=== PATIENT | female | born 1995 | race Caucasian/White ===

== ENCOUNTER 2019-11-25 05:09 | Outpatient (CLI) | payer MEDICAID ==
[2019-11-25] MEDS ORDERED: HYDROXYZINE PAMOATE 50 MG CAPSULE PO ONE (06:01)
[2019-11-25 06:04] LABS: APPEARANCE,URINE CLEAR; BILIRUBIN,URINE NEGATIVE (NEGATIVE); COLOR,URINE YELLOW; GLUCOSE, URINE NEGATIVE (NEGATIVE); KETONES,URINE NEGATIVE (NEGATIVE); LEUKOCYTE ESTERASE,URINE NEGATIVE (NEGATIVE); NITRITE,URINE NEGATIVE (NEGATIVE); PROTEIN,URINE NEGATIVE (NEGATIVE); URINE SPECIFIC GRAVITY 1.009; UROBILINOGEN,URINE NEGATIVE mg/dL (<2.0)
[2019-11-25] MEDS ORDERED: HYDROXYZINE PAMOATE 50 MG CAPSULE ONE (06:09)
[2019-11-25 06:25] LABS: URINE AMPHETAMINES SCREEN NEGATIVE; URINE BARBITURATES SCREEN NEGATIVE; URINE BENZODIAZEPINES SCREEN NEGATIVE; URINE COCAINE SCREEN NEGATIVE; URINE MARIJUANA (THC) SCREEN NEGATIVE; URINE METHADONE SCREEN NEGATIVE; URINE PHENCYCLIDINE SCREEN NEGATIVE
--- NOTE | 2019-11-25 08:18 | Non Stress Test Report ---
Non Stress Test Datetime Report Generated by CPN: 11/25/2019 08:18 DEMOGRAPHIC Test Number: 1 EGA NST: 38.1 INDICATION Indication for Study (NST) Other: lc VITAL SIGNS Temperature - NST: 96.8 Pulse - NST: 68 RESP - NST: 16 NBPSYS NST: 102 NBPDIA NST: 74 URINE RESULTS Urine Protein, NST: Negative Urine Ketones - NST: Negative Urine Glucose - NST: Negative Urine Blood - NST: Negative MONITORING Monitor Explained: Monitor Explained; Test Explained; Patient Verbalized Understanding Time on Monitor: 11/25/2019 05:30 Time off Monitor: 11/25/2019 06:09 NST Duration: 39 NST INTERVENTIONS NST Interventions: PO Hydration Physician Notified NST: Dr. Magno BABY A: [id number] BABY A Movement : Present Contraction Frequency : Irregular FHR Baseline : 125 Accelerations : 15X15 Decelerations : None Variability : Moderate 6-25bpm NST Review: Meets Criteria for Reactive NST NST Review and Verified By : TMartin,RN NST Results: Reactive NST REPORT Report Trigger: Send Report
== END 2019-11-25 07:42 | disposition home or self-care (01) ==
LOC: LC 05:09
PROVIDERS: ATTEND Obstetrics & Gynecology
DX: O26.892 Other specified pregnancy related conditions, second trimester (principal); M54.9 Dorsalgia, unspecified; Z3A.38 38 weeks gestation of pregnancy
CPT/HCPCS: 59025; 94760; 81001; 80307; 84112; J3490

== ENCOUNTER 2019-12-03 16:50 | Inpatient (IN) | payer MEDICAID ==
[2019-12-03] MEDS ORDERED: RINGERS SOLUTION,LACTATED 1,000 ML IV ONE (17:22)
[2019-12-03 17:33] LABS: APPEARANCE,URINE CLEAR; BILIRUBIN,URINE NEGATIVE (NEGATIVE); COLOR,URINE YELLOW; GLUCOSE, URINE NEGATIVE (NEGATIVE); KETONES,URINE NEGATIVE (NEGATIVE); LEUKOCYTE ESTERASE,URINE NEGATIVE (NEGATIVE); NITRITE,URINE NEGATIVE (NEGATIVE); PROTEIN,URINE NEGATIVE (NEGATIVE); URINE SPECIFIC GRAVITY 1.014
[2019-12-03] MEDS ORDERED: NA PHOS,M-B/NA PHOS,DI-BA (ADULT) 133 ML ENEMA PR PRN (17:57)
[2019-12-03] MEDS ORDERED: RINGERS SOLUTION,LACTATED 1,000 ML IV PRN ×2 (17:57→18:00)
[2019-12-03] MEDS ORDERED: DINOPROSTONE 10 MG VAGINAL INSERT.SR PV ONE (18:00)
[2019-12-03] MEDS ORDERED: MAG HYDROX/AL HYDROX/SIMETH SUSP 30 ML UDCUP PO PRN (18:00)
[2019-12-03] MEDS ORDERED: ZOLPIDEM TARTRATE 5 MG TABLET PO PRN (18:00)
[2019-12-03] MEDS ORDERED: ACETAMINOPHEN 325 MG TABLET PO PRN (18:00)
[2019-12-03] MEDS ORDERED: RINGERS SOLUTION,LACTATED 300 ML IV ONE (18:00)
--- NOTE | 2019-12-03 18:08 | Admission Physical ---
Datetime Report Generated by CPN: 12/03/2019 18:08 CURRENT ADMISSION Chief Complaint: Sent from OB Office for Evaluation and Treatment - Please Specify Indication for Induction: Oligohydramnios Admit Impression : Term, Intrauterine ; Induction of Labor Admit Plan: Admit to Unit; Initiate Labor Induction Protocol ALLERGIES Medication Allergies: No Medication Allergies: No Known Allergies (11/25/2019) Latex: No Latex Allergies Food Allergies: denies Environmental Allergies: denies OBSTETRICAL HISTORY EDC: 12/08/2019 00:00 : 1 Para: 0 Term: 0 : 0 SAB: 0 IAB: 0 Livin Cesareans: 0 VBACs: 0 Gestational Diabetes: Yes Rh Sensitization: No Incompetent Cervix: No RICHARD: No Infertility: No ART Treatment: No Uterine Anomaly: No IUGR: No Hx Previous C/S: No Macrosomia: No Hx Loss/Stillborn: No PIH: No Hx : No Placenta Previa/Abruption: No Depression/PP Depression: Yes PTL/PROM: No Post Hemorrhage: No Current Procedures: Ultrasound; NST Obstetrical History Comments: g1-current , GDM SEE RECORDS Alcohol: No Marijuana : No Cocaine: No Other Illicit Drugs: No Cigarettes: Current Everyday Smoker. [id number] Cigarette Frequency: > 10 per day Advised to Stop: Yes MEDICAL HISTORY Diabetes: Yes Diabetes Type: Gestational Diabetes Blood Transfusion: No Pulmonary Disease (Asthma, TB): No Breast Disease: No Hypertension: No Liquefaction And Regasification Helper Surgery: No Heart Disease: No Hosp/Surgery: No Autoimmune Disorder: Yes Anesthetic Complications: No Kidney Disease: Yes Abnormal Pap Smear: No Neuro/Epilepsy: No Psychiatric Disorders: Unknown Other Medical Diseases: No Hepatitis/Liver Disease: No Significant Family History: No Varicosities/Phlebitis: No Trauma/Violence : No Thyroid Dysfunction: No Medical History Comments: smoker, hand xray on right hand, uti, psoriasis, depression, records state borderline personality disorder, tonsilectomy, wisdom teeth removal, thc per chart, hx of cutting INFECTIOUS HISTORY Gonorrhea: No Genital Herpes: No Chlamydia: No Tuberculosis: No Syphilis: No Hepatitis: No HIV/AIDS Exposure: No Rash or Viral Illness: No HPV: No PHYSICAL EXAM General: Normal HEENT: Normal Neurologic: Normal Thyroid: Normal Heart: Normal Lungs: Normal Breast: Normal Back: Normal Abdomen: Normal Genitourinary Exam: Normal Extremities: Normal DTRs: Normal Pelvic Type: Adequate Vital Signs: Reviewed; Within Normal Limits VAGINAL EXAM Dilatation: 2 Effacement: 80 Station: -1 MEMBRANES Pooling: Negative Membranes: Intact FETUS A EGA: 39.2 Monitoring: External US FHR- Baseline: 130 Variability: Moderate 6-25bpm Accelerations: 10X10 Decelerations: None FHR Category: Category II Estimated Weight (gm): 3400 Presentation: Vertex Admit Comment: sent from office for rehydration due to CITLALI of 4.7. Will go ahead and proceed with induction based on EGA and oligohydramnios. EFW at office 7# 12 oz PLANS FOR LABOR AND DELIVERY Labor and Delivery: Other, Specify Pain Management: Epidural Feeding Preference: Breast Benefit of Breast Feed Discussed: Yes Circumcision: Yes INFORMED CONSENT Signature: with User ID: [email or web address]
[2019-12-03 18:09] LABS: URINE AMPHETAMINES SCREEN NEGATIVE; URINE BARBITURATES SCREEN NEGATIVE; URINE BENZODIAZEPINES SCREEN NEGATIVE; URINE COCAINE SCREEN NEGATIVE; URINE MARIJUANA (THC) SCREEN NEGATIVE; URINE METHADONE SCREEN NEGATIVE; URINE PHENCYCLIDINE SCREEN NEGATIVE
[2019-12-03 18:34] LABS: ABSOLUTE EOSINOPHILS # (AUTO) 0.1 10^3/uL (0.0-0.6); ABSOLUTE MONOCYTES (AUTO) 0.5 10^3/uL (0.1-1.4); ABSOLUTE NEUT (AUTO) 3.2 10^3/uL (1.7-8.2); BASOPHILS % (AUTO) 0.5 % (0-2); EOSINOPHILS % (AUTO) 2.5 % (0-6); HEMATOCRIT 38.8 % (36.0-47.0); HEMOGLOBIN 13.3 g/dL (12.0-15.5); LYMPHOCYTES % (AUTO) 34.8 % (13-45); MEAN CORPUSCULAR HEMOGLOBIN 30.3 pg (27.0-33.4); MEAN CORPUSCULAR HGB CONC 34.2 g/dL (32.0-36.0); MEAN CORPUSCULAR VOLUME 89 fl (80-97); MONOCYTES % (AUTO) 8.2 % (3-13); PLATELET COUNT 108 10^3/uL (150-450); RED BLOOD COUNT 4.37 10^6/uL (3.72-5.28); RED CELL DISTRIBUTION WIDTH 14.7 % (11.5-14.0); TOTAL CELLS COUNTED % (AUTO) 100 %; WHITE BLOOD COUNT 5.9 10^3/uL (4.0-10.5)
[2019-12-03] MEDS ORDERED: LIDOCAINE 1% INJ-PF (10 MG/ML) 30 ML SDV ONE (19:16)
[2019-12-03] MEDS ORDERED: OXYTOCIN/0.9 % SODIUM CHLORIDE 30 UNIT/500 ML RTUINJ ONE (19:16)
[2019-12-03] MEDS ORDERED: OXYTOCIN 10 UNIT/ML VIAL ONE (19:16)
[2019-12-03] MEDS: OXYTOCIN/0.9 % SODIUM CHLORIDE 30 UNIT/500 ML RTUINJ IV PRN (20:17)
--- NOTE | 2019-12-03 21:11 | Warning Signs in Babies ---
VOD Warning Signs Datetime Report Generated by CPN: 12/03/2019 21:11 VOD#[id number] -Warning Signs in Babies: Viewed with Parent(s)/Family (12/03/2019 21:10:Miguel Javier RN)
[2019-12-04] MEDS: OXYTOCIN/0.9 % SODIUM CHLORIDE 30 UNIT/500 ML RTUINJ IV PRN (10:15)
--- NOTE | 2019-12-04 10:23 | L&D Progress Notes ---
PROGRESS NOTES Datetime Report Generated by CPN: 12/04/2019 10:23 PROGRESS NOTE Impression: Reassuring Heart Rate Plan: Continue Present Management; Induction Vital Signs : Reviewed Comment: resting on left side, feeling mild uc's, Cat 1 strip, Pitocin infusing POC discussed Desires epidural when needed Hsb sleeping in room VAGINAL EXAM Dilatation: 2 Effacement: 80 Station: -1 LAST VAGINAL EXAM-NURSING Nursing Exam Dilitation: 2.0 Nursing Exam Effacement: 80 Nursing Exam Station: -1 Nursing Exam Contractions: [place] placed MEMBRANES Pooling: Negative Membranes: Intact FETUS A Monitoring: External US Variability: Moderate 6-25bpm Accelerations: 15X15 : 39.2 Estimated Weight (gm): 3400 Presentation: Vertex SIGNATURE SIGNATURE: [id number];[id number];[id number] Assignment: Perfecto Wesley MD Signature: with User ID: [email or web address] : with User ID: Rafael
--- NOTE | 2019-12-04 12:27 | L&D Progress Notes ---
PROGRESS NOTES Datetime Report Generated by CPN: 12/04/2019 12:27 PROGRESS NOTE Impression: Normal Progression of Labor Procedures: Artificial ROM; Sterile Vag Exam Plan: Continue Present Management; Induction Vital Signs : Reviewed; Within Normal Limits Comment: VE 390/vtx/0, AROM, no fluid, c/o of pain with uc's, desires Nubain and Epidural later, Cat 1 strip VAGINAL EXAM Dilatation: 2 Effacement: 80 Station: -1 LAST VAGINAL EXAM-NURSING Nursing Exam Dilitation: 2.0 Nursing Exam Effacement: 80 Nursing Exam Station: -1 Nursing Exam Contractions: Cx not tracing. TOCO adjusted MEMBRANES Pooling: Negative Membranes: Intact FETUS A Monitoring: External US Variability: Moderate 6-25bpm Accelerations: 15X15 : 39.2 Estimated Weight (gm): 3400 Presentation: Vertex SIGNATURE SIGNATURE: [id number];13,[id number];10,[id number];27,[id number] Assignment: Perfecto Wesley MD Signature: with User ID: Rafael : with User ID: Rafael
[2019-12-04] MEDS ORDERED: NALBUPHINE HCL INJ 10 MG/1 ML AMPULE IV ONE (12:28)
[2019-12-04] MEDS ORDERED: NALBUPHINE HCL INJ 10 MG/1 ML AMPULE ONE (12:37)
[2019-12-04] MEDS ORDERED: EPHEDRINE SULFATE INJ 50 MG/1 ML AMPULE ONE (13:54)
[2019-12-04] MEDS ORDERED: FENTANYL/BUPIVACAINE/NS/PF 300 MCG/150 ML RTUINJ EPI ONE (13:54)
[2019-12-04] MEDS ORDERED: ROPIVACAINE HCL 0.2% INJ/PF (2 MG/ML) 20 ML SDV ONE (13:55)
[2019-12-04] MEDS ORDERED: PROMETHAZINE HCL 25 MG SUPP.RECT PR PRN (19:10)
[2019-12-04] MEDS ORDERED: ACETAMINOPHEN WITH CODEINE #3 TABLET PO PRN (19:10)
[2019-12-04] MEDS ORDERED: PSEUDOEPHEDRINE HCL 30 MG TABLET PO PRN (19:10)
[2019-12-04] MEDS ORDERED: MAGNESIUM HYDROXIDE SUSP 30 ML UDCUP PO PRN (19:10)
[2019-12-04] MEDS ORDERED: MEASLES,MUMPS&RUBELLA VACC/PF 0.5 ML VIAL SUBCUT PRN (19:10)
[2019-12-04] MEDS ORDERED: ACETAMINOPHEN 650 MG SUPP.RECT PR PRN (19:10)
[2019-12-04] MEDS ORDERED: NA PHOS,M-B/NA PHOS,DI-BA (ADULT) 133 ML ENEMA PR PRN (19:10)
[2019-12-04] MEDS ORDERED: DIPHENHYDRAMINE HCL 25 MG CAPSULE PO PRN (19:10)
[2019-12-04] MEDS ORDERED: OXYTOCIN/0.9 % SODIUM CHLORIDE 30 UNIT/500 ML RTUINJ IV PRN (19:10)
[2019-12-04] MEDS ORDERED: PROMETHAZINE HCL INJ 25 MG/1 ML VIAL IV PRN (19:10)
[2019-12-04] MEDS ORDERED: PROMETHAZINE HCL 25 MG TABLET PO PRN (19:10)
[2019-12-04] MEDS ORDERED: GLYCERIN/WITCH HAZEL LEAF 1 EACH MED..WIPE TP PRN (19:10)
[2019-12-04] MEDS ORDERED: DIPH/PERTUSS(ACELL)/TETANUS VAC/PF 0.5 ML SYR (>=10YO) IM PRN (19:10)
[2019-12-04] MEDS ORDERED: DIBUCAINE 1% OINTMENT 28 GM TP PRN (19:10)
[2019-12-04] MEDS ORDERED: ZOLPIDEM TARTRATE 5 MG TABLET PO PRN (19:10)
[2019-12-04] MEDS ORDERED: BENZOCAINE/MENTHOL AEROSOL SPRAY 56 ML TOP PRN (19:10)
[2019-12-04] MEDS: MISOPROSTOL 0.2 MG TABLET ONE (19:13)
[2019-12-04] MEDS ORDERED: MISOPROSTOL 0.2 MG TABLET PR ONE (19:13)
--- NOTE | 2019-12-04 20:27 | Warning Signs in Babies ---
VOD Warning Signs Datetime Report Generated by CPN: 12/04/2019 20:26 VOD#[id number] -Warning Signs in Babies: Viewed with Parent(s)/Family (12/04/2019 20:15:Irma Rock RN)
--- NOTE | 2019-12-04 20:46 | Warning Signs in Babies ---
VOD Warning Signs Datetime Report Generated by N: 12/04/2019 20:46 VOD#[id number] -Warning Signs in Babies: Viewed with Parent(s)/Family (12/04/2019 20:30:Irma Rock RN)
--- NOTE | 2019-12-04 20:49 | Delivery Summary ---
Del Sum A-C Datetime Report Generated by CPN: 12/04/2019 20:48 DELIVERY PERSONNEL DELIVERY PERSONNEL: [id number] Delivery Doctor:: Perfecto Wesley MD Labor and Delivery Nurse:: Alice Luz, product development specialist Nurse:: Mnotse Varela, RNC Nursery Nurse:: Grace Soria RN Nursery Nurse:: Gwen Vega RN Drywall Hanger Helper/ORCHARDIST: Sonja Larsen, FILLING MIXER Drywall Hanger Helper/ORCHARDIST: Dominga Marshburn, FILLING MIXER MATERNAL INFORMATION Delivery Anesthesia: Epidural Medications After Delivery: Pitocin Bolus-Please Comment; Cytotec 1000mcg Per Rectum/Vagina Delivery QBL: 100 Maternal Complications: None LABOR SUMMARY EDC: 12/08/2019 00:00 No. Babies in Womb: 1 Attempted: No Labor Anesthesia: Epidural LABOR INFORMATION Reason for Induction: Oligohydramnios Onset of Labor: 12/04/2019 12:30 Complete Dilatation: 12/04/2019 17:00 Cervical Ripening Agents: Cytotec @ 1000 Oxytocin: Induction Group B Beta Strep: negative Antibiotics # of Doses: 0 Name of Antibiotic Given: n/a Steroids Given: None Reason Steroids Not Administered: Not Applicable MEMBRANES Membranes Rupture Method: Artificial Rupture of Membranes: 12/04/2019 12:30 Length of Rupture (hr): 6.43 Amniotic Fluid Color: Clear Amniotic Fluid Amount: Scant Amniotic Fluid Odor: Normal STAGES OF LABOR Stage 1 hr: 4 Stage 1 min: 30 Stage 2 hr: 1 Stage 2 min: 56 Stage 3 hr: 0 Stage 3 min: 3 Total Time in Labor hr: 6 Total Time in Labor min: 29 VAGINAL DELIVERY Episiotomy: None Laceration #1: Vaginal Laceration Extension #1: N/A Other Laceration: superficial vaginal Laceration Repair: Yes Sponge Count Correct: N/A Sharps Count Correct: N/A CSECTION DELIVERY Primary Indication: N/A Secondary Indication: N/A CSection Incidence: N/A Labor: N/A CSection Incision: N/A BABY A INFORMATION Infant Delivery Date/Time: 12/04/2019 18:56 Method of Delivery: Vaginal Nurse Controlled Delivery: No Born in Route : No : N/A Forceps: N/A Vacuum Extraction: N/A Shoulder Dystocia : No PRESENTATION/POSITION BABY A Presentation: Cephalic Cephalic Presentation: Vertex Vertex Position: Left Occipital Anterior Breech Presentation: N/A PLACENTA INFORMATION BABY A Placenta Delivery Time : 12/04/2019 18:59 Placenta Method of Delivery: Spontaneous Placenta Status: Delivered SCORES BABY A Heart Rate 1 min: >100 bpm Resp Effort 1 min: Good Cry Reflex Irritability 1 min: Cough or Sneeze or Pulls Away Muscle Tone 1 min: Active Motion Color 1 min: Body Aldora, Extremities Blue Resuscitation Effort 1 min: Tactile Stimulation SCORE 1 MIN: 9 Heart Rate 5 min: >100 bpm Resp Effort 5 min: Good Cry Reflex Irritability 5 min: Cough or Sneeze or Pulls Away Muscle Tone 5 min: Active Motion Color 5 min: Body Aldora, Extremities Blue Resuscitation Effort 5 min: N/A SCORE 5 MIN: 9 Resuscitation Effort 10 min: N/A INFORMATION BABY A Gestational Age at Delivery: 39.3 Gestational Status: Full Term- 39- 40.6 Weeks Outcome : Liveborn Infant Condition : Stable Sex: Male IDENTIFICATION BABY A Verification Date/Time: 12/04/2019 19:23 ID Band Number: [id number] Mother's Name Verified: Yes RN Verifying : K Pranav RN/D [place] RN WEIGHT/LENGTH BABY A Infant Birthweight (gm): 3469 Weight (lb): 7 Infant Weight (oz): 10 Infant Length (in): 20.00 Length (cm): 50.80 CORD INFORMATION BABY A No. Cord Vessels: 3 Nuchal Cord : N/A Cord Blood Taken: Yes-For Storage (Mom's Blood type +) Suction: None ASSESSMENT BABY A Infant Complications: Multiple Variable Decels Physical Findings at Delivery: Caput Succedaneum; Molding of the Head Infant Respirations: Appears Normal Skin to Skin: Yes Skin to Skin Time (min): 45 Janitor And Cleaner/ALS Called : No Infant Care By: C Yang RN Transferred To: Remains with Mother BABY B INFORMATION : N/A SIGNATURES Signature: with User ID: [email or web address]
--- NOTE | 2019-12-04 20:49 | Birth Certificate Data ---
Cert Data Datetime Report Generated by CPN: 12/04/2019 20:48 CERTIFICATE DATA 47a. Care: Yes (11/25/2019 05:15:[facility]) 47b. Date of First Visit: 04/27/2019 00:00 (11/25/2019 05:15:Miguel Javier RN) 47c. Date of Last Visit: 12/03/2019 00:00 (11/25/2019 05:15:[facility]) 47d. Number of Visits: 11 (11/25/2019 05:15:[facility]) 48a. Number of Prev Live Births: 0 (11/25/2019 05:15:Miguel Javier RN) 48b. Now Livin (11/25/2019 05:15:Tess Granado RN) 48c. Live Births Now : 0 (11/25/2019 05:15:[facility] system process) 48e. Losses: 0 (11/25/2019 05:15:Miguel Javier RN) RISK FACTORS IN THIS 49a. Diabetes: Yes (11/25/2019 05:15:Ayanna Xiong RN) Type of Diabetes: Gestational Diabetes (11/25/2019 05:15:Ayanna Xiong RN) 49b. Hypertension: No (11/25/2019 05:15:Ayanna Xiong RN) 49c. Previous Births: 0 (11/25/2019 05:15:Ayanna Xiong RN) 49d. Stillborns: No (11/25/2019 05:15:Ayanna Xiong RN) 49d. IUGR: No (11/25/2019 05:15:Ayanna Xiong RN) 49e. Infertility Treatment: No (11/25/2019 05:15:Ayanna Xiong RN) 49f. Previous Cesareans: 0 (11/25/2019 05:15:Ayanna Xiong RN) Mother's Height 50b. Height Inches: 66 (12/04/2019 15:25:QS system process) Mother's Weight 51a. Pre- Weight (lbs): 200 (11/25/2019 05:15:Ayanna Xiong RN) 51b. Weight at Delivery (lbs): 216 (12/04/2019 15:25:QS system process) 52. Dt Last Normal Menses Began: 03/28/2019 00:00 (11/25/2019 05:15:[facility]) Infections Present/Treated 53a. Gonorrhea: No (11/25/2019 05:15:Ayanna Xiong RN) Results this Hospital Visit : Negative (11/25/2019 05:15:Ayanna Xiong RN) 53b. Syphilis: No (11/25/2019 05:15:Ayanna Xiong RN) Results this Hospital Visit: NONREACTIVE (12/03/2019 18:22:[facility] system process) 53c. Chlamydia: No (11/25/2019 05:15:Ayanna Xiong RN) Results this Hospital Visit: Negative (11/25/2019 05:15:Ayanna Xiong RN) 53d. Hepatitis B: No (11/25/2019 05:15:Ayanna Xiong RN) Results this Hospital Visit: Negative (11/25/2019 05:15:Ayanna Xiong RN) 53e. Hepatitis C: Negative (11/25/2019 05:15:[facility]) 53h. Mother Tested for HBsAG: Yes (11/25/2019 05:15:[facility]) 53i. Date Tested: 05/01/2019 00:00 (11/25/2019 05:15:[facility]) 53j. Test Result: Negative (11/25/2019 05:15:Ayanna Xiong RN) Obstetric Procedures 54a, b, c. Obstetric Procedures: Ultrasound; NST (11/25/2019 05:15:Ayanna Xiong RN) Cigarette Smoking Cigarette Smoking: Current Everyday Smoker. [id number] (11/25/2019 05:15:Ayanna Xiong RN) 55a. Packs: 1 (11/25/2019 05:15:Ayanna Xiong RN) 55b. Packs: 1 (11/25/2019 05:15:Ayanna Xiong RN) 55c. Packs: 1 (11/25/2019 05:15:Ayanna Xiong RN) 55d. Packs: 2 (11/25/2019 05:15:[facility]) Onset of Labor 56a. PROM >12 Hrs: 6.43 (11/25/2019 05:15:QS system process) 56b. Precipitous Labor <3 Hrs: 6 (11/25/2019 05:15:QS system process) 56c. Prolonged Labor > 20 Hrs: 6 (11/25/2019 05:15:QS system process) 57a. Induction of Labor: Induction (11/25/2019 05:15:[facility]) 57a. Induction of Labor: Cytotec @ 1000 (12/04/2019 19:01:Alice Luz RN) 57c. Non-Vertex Presentation A: Vertex (11/25/2019 05:15:[facility]) 57d. Steroids - Lung Mat: None (11/25/2019 05:15:[facility]) 57d. Steroids - Lung Mat: Not Applicable (11/25/2019 05:15:[facility]) 57f. Mat [place] or Temp >100.4: 98.4 (11/25/2019 05:15:Irma Rock RN) 57g. Moderate/Heavy Meconium: Clear (12/04/2019 12:30:Alice Luz RN) 57h. Intolerance of Labor: N/A (11/25/2019 05:15:[facility]) : N/A (11/25/2019 05:15:[facility]) 57i. Epidural/Spinal Anesthesia: Epidural (11/25/2019 05:15:[facility]) Method of Delivery 58a. Forceps - Unsuccessful A: N/A (11/25/2019 05:15:[facility]) 58b. Vacuum - Unsuccessful A: N/A (11/25/2019 05:15:[facility]) 58c. Presentation at 58c. Presentation at - A : Vertex (11/25/2019 05:15:[facility]) 58c. Presentation at - A : N/A (11/25/2019 05:15:[facility]) 58c. Presentation at - A : Cephalic (11/25/2019 05:15:[facility]) Final Route and Method of Del 58d. Baby A Route/Delivery: Vaginal (12/04/2019 18:55:Alice Luz RN) 58e. Trial of Labor Attempted: No (11/25/2019 05:15:[facility]) 58e. Trial of Labor Attempted A: N/A (11/25/2019 05:15:[facility]) 58e. Trial of Labor Attempted B: N/A (11/25/2019 05:15:[facility]) Maternal Morbidity 59b. 3rd or 4th Degree Lacs: Vaginal (11/25/2019 05:15:Montse Varela, RNC) 59b. 3rd or 4th Degree Lacs: superficial vaginal (11/25/2019 05:15:Irma Rock, RN) Birthweight Baby A: 3469 (11/25/2019 05:15:Irma Rock RN) 60a. Pounds : 7 (11/25/2019 05:15:[facility] system process) 60b. Ounces: 10 (11/25/2019 05:15:QS system process) 61. GA at Delivery Baby A: 39.3 (11/25/2019 05:15:Montse Varela, C) : Full Term- 39- 40.6 Weeks (11/25/2019 05:15:QS system process) 62a. 5 Minute Baby A: 9 (11/25/2019 05:15:QS system process)
[2019-12-04] MEDS: IBUPROFEN 800 MG TABLET PO SCH (21:27)
[2019-12-04] MEDS: FAMOTIDINE 20 MG TABLET PO SCH (21:27)
[2019-12-05] MEDS: IBUPROFEN 800 MG TABLET PO SCH ×3 (05:54→21:24)
[2019-12-05] MEDS: MISOPROSTOL 0.2 MG TABLET ONE (09:12)
[2019-12-05] MEDS: PRENATAL VITAMIN W DHA CAPSULE PO SCH (09:27)
[2019-12-05] MEDS: SENNOSIDES/DOCUSATE 8.6-50 MG 1 EACH TABLET PO SCH (09:28)
[2019-12-05] MEDS: FERROUS SULFATE 325 MG TABLET PO SCH ×2 (09:28→17:17)
[2019-12-05] MEDS: DOCUSATE SODIUM 100 MG CAPSULE PO SCH ×2 (09:28→17:17)
[2019-12-05] MEDS: FAMOTIDINE 20 MG TABLET PO SCH ×2 (09:28→21:25)
[2019-12-05 10:10] LABS: HEMATOCRIT 32.7 % (36.0-47.0); HEMOGLOBIN 11.3 g/dL (12.0-15.5); MEAN CORPUSCULAR HEMOGLOBIN 30.5 pg (27.0-33.4); MEAN CORPUSCULAR HGB CONC 34.5 g/dL (32.0-36.0); MEAN CORPUSCULAR VOLUME 88 fl (80-97); PLATELET COUNT 104 10^3/uL (150-450); RED BLOOD COUNT 3.71 10^6/uL (3.72-5.28); RED CELL DISTRIBUTION WIDTH 14.7 % (11.5-14.0); WHITE BLOOD COUNT 9.2 10^3/uL (4.0-10.5)
--- NOTE | 2019-12-05 14:22 | PDOC PROGRESS REPORT ---
Subjective-OB Progress Note for:: 12/05/19 Subjective: 24yo s/p ppd 1. Pt is ambulating, voiding and bonding well with baby, reports pain well controlled with medication no concerns at this time Physical Exam (OB) Vital Signs: Temp Pulse Resp BP Pulse Ox 98.3 F 73 17 116/69 99 12/05/19 08:07 12/05/19 08:00 12/05/19 08:00 12/05/19 08:00 12/05/19 08:00 Intake & Output 12/04/19 12/05/19 12/06/19 06:59 06:59 06:59 Intake Total 1240 Balance 1240 Weight 97.7 kg - General General Appearance: Appears well In distress: None - PIH/Pre-Eclampsia DTR's: 2 + Clonus: Negative Headache: Absent Epigastric Pain: No Visual Changes: No - Maternal Morbidity 59. Maternal Morbidity (serious complications experinced by the mother associated with labor and delivery: None of the above - Episiotomy/Laceration Site Condition: Well Approximated - Lochia Lochia Amount: Small 10-25 ml Lochia Color: Rubra/Red - Abdomen Description: Soft, Round Hernia Present: No Fundal Description: Firm Fundal Height: u/u - u/2 - Respiratory Respiratory Status: No respiratory distress - Extremities Upper extremity: Normal inspection Lower extremities: Normal inspection - Neurological Cognition: Normal Orientation: AAOx4 - Psychological Associated symptoms: Normal mood, Flat affect - Skin Skin Irregularity: other - right arm with multiple areas that appear as rash/ezcema/psoriasis Objective-Diagnostic Laboratory: 12/05/19 09:46 12/05/19 09:46 WBC 9.2 RBC 3.71 L Hgb 11.3 L Hct 32.7 L MCV 88 MCH 30.5 MCHC 34.5 RDW 14.7 H Plt Count 104 L Assessment and Plan(PN) - Assessment and Plan (1) Vaginal delivery Is this a current diagnosis for this admission?: Yes Plan: routine pp care (2) Smoking (tobacco) complicating , third trimester Is this a current diagnosis for this admission?: Yes Plan: cessation encouraged (3) History of drug abuse Is this a current diagnosis for this admission?: Yes Plan: discharge planning placed (4) Oligohydramnios Qualifiers: Fetus number: single or unspecified fetus Is this a current diagnosis for this admission?: Yes Plan: delivered (5) H/O borderline personality disorder Is this a current diagnosis for this admission?: Yes Plan: discharge planning placed - Time Spent with Patient Time with patient: Less than 15 minutes Smoking Education Provided: Over 3 minutes Medications reviewed and adjusted accordingly: Yes - Disposition Anticipated Discharge Disposition: Home, Self Care Anticipated Discharge Timeframe: within 24 hours
[2019-12-06] MEDS: IBUPROFEN 800 MG TABLET PO SCH (06:16)
[2019-12-06] MEDS: PRENATAL VITAMIN W DHA CAPSULE PO SCH (09:11)
[2019-12-06] MEDS: SENNOSIDES/DOCUSATE 8.6-50 MG 1 EACH TABLET PO SCH (09:11)
[2019-12-06] MEDS: DOCUSATE SODIUM 100 MG CAPSULE PO SCH (09:11)
[2019-12-06] MEDS: FERROUS SULFATE 325 MG TABLET PO SCH (09:11)
[2019-12-06] MEDS: FAMOTIDINE 20 MG TABLET PO SCH (09:11)
--- NOTE | 2019-12-06 10:22 | PDOC PROGRESS REPORT ---
Subjective-OB Progress Note for:: 12/06/19 Subjective: Ready for discharge Physical Exam (OB) Vital Signs: Temp Pulse Resp BP Pulse Ox 98.1 F 67 14 109/51 L 98 12/06/19 09:52 12/06/19 07:53 12/06/19 07:53 12/06/19 07:53 12/06/19 07:53 Intake & Output 12/05/19 12/06/19 12/07/19 06:59 06:59 06:59 Intake Total 2640 Balance 2640 - PIH/Pre-Eclampsia DTR's: 1 + Clonus: Negative Headache: Absent Epigastric Pain: No Visual Changes: No - Maternal Morbidity 59. Maternal Morbidity (serious complications experinced by the mother associated with labor and delivery: None of the above - Lochia Lochia Amount: Scant < 10 ml Lochia Color: Rubra/Red - Abdomen Description: Soft Hernia Present: No Bowel Sounds: Normoactive Flatus Presence: Present Stool: No Fundal Description: Firm, Midline Fundal Height: u/u - u/2 Objective-Diagnostic Laboratory: 12/05/19 09:46 Assessment and Plan(PN) - Time Spent with Patient Time with patient: 15-25 minutes Smoking Education Provided: Over 3 minutes Medications reviewed and adjusted accordingly: Yes - Disposition Anticipated Discharge Disposition: Home, Self Care Anticipated Discharge Timeframe: within 24 hours
--- NOTE | 2019-12-06 10:32 | PDOC DISCHARGE SUMMARY ---
Impression - Admit/DC Date/PCP Admission Date/Primary Care Provider: 12/03/19 17:54 Discharge Date: 12/06/19 - Discharge Diagnosis (1) H/O borderline personality disorder Is this a current diagnosis for this admission?: Yes (2) History of drug abuse Is this a current diagnosis for this admission?: Yes (3) Oligohydramnios Is this a current diagnosis for this admission?: Yes (4) Smoking (tobacco) complicating , third trimester Is this a current diagnosis for this admission?: Yes (5) Vaginal delivery Is this a current diagnosis for this admission?: Yes - Additional Information Resuscitation Status: Full Code Discharge Diet: Regular Discharge Activity: Activity As Tolerated, Balance Activity w/Rest, Pelvic Rest, Slowly Increase Activity, No tub bath Referrals: CORRIE LUTHER MD [ACTIVE STAFF] - Home Medications: Pnv No.95/Ferrous Fum/Folic AC [ Vitamins Tablet] 1 tab PO DAILY 11/25/19 HPI Gestational Age: 39.3 wks Reason(s) for Admission: Induction of Labor Procedures: Ultrasound Intrapartum Procedure(s): Spontaneous Vaginal Delivery Complication(s): Laceration-Vaginal Hospital Course 59. Maternal Morbidity (serious complications experinced by the mother associated with labor and delivery: None of the above Results Laboratory Results: WBC 9.2 10^3/uL (4.0-10.5) 12/05/19 09:46 RBC 3.71 10^6/uL (3.72-5.28) L 12/05/19 09:46 Hgb 11.3 g/dL (12.0-15.5) L 12/05/19 09:46 Hct 32.7 % (36.0-47.0) L 12/05/19 09:46 MCV 88 fl (80-97) 12/05/19 09:46 MCH 30.5 pg (27.0-33.4) 12/05/19 09:46 MCHC 34.5 g/dL (32.0-36.0) 12/05/19 09:46 RDW 14.7 % (11.5-14.0) H 12/05/19 09:46 Plt Count 104 10^3/uL (150-450) L 12/05/19 09:46 Lymph % (Auto) 34.8 % (13-45) 12/03/19 18:22 [place] % (Auto) 8.2 % (3-13) 12/03/19 18:22 Eos % (Auto) 2.5 % (0-6) 12/03/19 18:22 Baso % (Auto) 0.5 % (0-2) 12/03/19 18:22 Absolute Neuts (auto) 3.2 10^3/uL (1.7-8.2) 12/03/19 18:22 Absolute Lymphs (auto) 2.0 10^3/uL (0.5-4.7) 12/03/19 18:22 Absolute Monos (auto) 0.5 10^3/uL (0.1-1.4) 12/03/19 18:22 Absolute Eos (auto) 0.1 10^3/uL (0.0-0.6) 12/03/19 18:22 Absolute Basos (auto) 0.0 10^3/uL (0.0-0.2) 12/03/19 18: Seg Neutrophils % 54.0 % (42-78) 12/03/19 18:22 Urine Color YELLOW 12/03/19 17:00 Urine Appearance CLEAR 12/03/19 17:00 Urine pH 5.0 (5.0-9.0) 12/03/19 17:00 Ur Specific [place] 1.014 12/03/19 17:00 Urine Protein NEGATIVE mg/dL (NEGATIVE) 12/03/19 17:00 Urine Glucose (UA) NEGATIVE mg/dL (NEGATIVE) 12/03/19 17:00 Urine Ketones NEGATIVE mg/dL (NEGATIVE) 12/03/19 17:00 Urine Blood NEGATIVE (NEGATIVE) 12/03/19 17:00 Urine Nitrite NEGATIVE (NEGATIVE) 12/03/19 17:00 Urine Bilirubin NEGATIVE (NEGATIVE) 12/03/19 17:00 Urine Urobilinogen 2.0 mg/dL (<2.0) H 12/03/19 17:00 Ur Leukocyte Esterase NEGATIVE (NEGATIVE) 12/03/19 17:00 Urine Ascorbic Acid NEGATIVE (NEGATIVE) 12/03/19 17:00 Membranes Rupture NEGATIVE (NEGATIVE) 12/03/19 17:25 Urine Opiates Screen NEGATIVE 12/03/19 17:00 Urine Methadone Screen NEGATIVE 12/03/19 17:00 Ur Barbiturates Screen NEGATIVE 12/03/19 17:00 Ur Phencyclidine Scrn NEGATIVE 12/03/19 17:00 Ur Amphetamines Screen NEGATIVE 12/03/19 17:00 U Benzodiazepines Scrn NEGATIVE 12/03/19 17:00 Urine Cocaine Screen NEGATIVE 12/03/19 17:00 U Marijuana (THC) Screen NEGATIVE 12/03/19 17:00 RPR NONREACTIVE (NONREACTIVE) 12/03/19 18:22 Blood Type A POSITIVE 12/03/19 18:22 Antibody Screen NEGATIVE 12/03/19 18:22 Plan Time Spent: Greater than 30 Minutes
[2019-12-06 10:45] VITALS: BP 116/69
== END 2019-12-06 13:00 | disposition home or self-care (01) | DRG 807 ==
LOC: LC 16:50 → LR 17:54 → 2S 12-04 21:05
PROVIDERS: ADMIT Obstetrics & Gynecology; ATTEND Obstetrics & Gynecology Gynecology
PROC: 10E0XZZ Delivery of Products of Conception, External Approach (ICD-10-PCS; principal; 2019-12-04)
PROC: 0HQ9XZZ Repair Perineum Skin, External Approach (ICD-10-PCS; 2019-12-04)
DX: O41.03X0 Oligohydramnios, third trimester, not applicable or unspecified (principal); Z37.0 Single live birth; O99.334 Smoking (tobacco) complicating childbirth; F17.210 Nicotine dependence, cigarettes, uncomplicated; O24.429 Gestational diabetes mellitus in childbirth, unspecified control; O99.344 Other mental disorders complicating childbirth; F60.3 Borderline personality disorder; F32.9 Major depressive disorder, single episode, unspecified; Z3A.39 39 weeks gestation of pregnancy; O76 Abnormality in fetal heart rate and rhythm complicating labor and delivery; O70.0 First degree perineal laceration during delivery
CPT/HCPCS: 1967; 36415; 80307; 81005; 84112; 86592; 86850; 86900; 86901; 94760; J2300; J2590; J2795; J3010; J3490